=== PATIENT | female | born 1995 | race Caucasian/White ===

== ENCOUNTER 2016-05-03 20:34 | Emergency (ER) | payer BC ==
[~2016-05-03] VITALS: Ht 162.6 cm; Wt 52.7 kg
[~2016-05-03 20:34] MED LIST: birth control pill PO
[2016-05-03 20:38] VITALS: BP 146/77; TEMP 99.3
[2016-05-03 22:45] VITALS: PULSE 69
== END 2016-05-03 22:46 | disposition home or self-care (01) ==
LOC: COL.ER 20:34
DX: S60.221A Contusion of right hand, initial encounter (principal); W22.09XA Striking against other stationary object, initial encounter; Y92.009 Unspecified place in unspecified non-institutional (private) residence as the place of occurrence of the external cause

== ENCOUNTER → 2018-12-27 | Outpatient (CLI) | payer BC | LOC: COL.RAD 14:50 | DX: R35.0 Frequency of micturition (principal); Z87.440 Personal history of urinary (tract) infections ==

== ENCOUNTER → 2020-03-17 | Outpatient (CLI) | payer BC | LOC: COL.PUL 07:41 | DX: R06.00 Dyspnea, unspecified (principal) ==

== ENCOUNTER → 2020-05-06 | Outpatient (CLI) | payer BC | LOC: COL.PUL 09:32 | DX: R06.00 Dyspnea, unspecified (principal) | CPT/HCPCS: J7674 ==